=== PATIENT | male | born 2000 | race Hispanic/Latino ===

== ENCOUNTER 2021-08-19 07:18 | Emergency (ER) | payer BC ==
[~2021-08-19] VITALS: Ht 185.4 cm; Wt 77.0 kg
[~2021-08-19 07:18] MED LIST: ALLOPURINOL100 MG PO; ATENOLOL50 MG PO; LISINOPRIL20 MG PO; NIFEDIPINE60 MG PO; SPIRONOLACTONE50 MG PO; VITAMIN D22000 UNIT PO
[2021-08-19 09:45] VITALS: BP 176/110
== END 2021-08-19 09:52 | disposition home or self-care (01) | DRG 919 ==
LOC: ED 07:18
DX: K91.840 Postprocedural hemorrhage of a digestive system organ or structure following a digestive system procedure (principal); N18.6 End stage renal disease; I12.0 Hypertensive chronic kidney disease with stage 5 chronic kidney disease or end stage renal disease; Y83.6 Removal of other organ (partial) (total) as the cause of abnormal reaction of the patient, or of later complication, without mention of misadventure at the time of the procedure; Z99.2 Dependence on renal dialysis

== ENCOUNTER 2022-06-02 10:31 | Emergency (ER) | payer BC ==
[~2022-06-02] VITALS: Ht 185.4 cm; Wt 77.3 kg
[2022-06-02 10:58] VITALS: BP 182/113
[2022-06-02 11:00] VITALS: BP 183/119
[2022-06-02] MEDS ORDERED: RENAGEL 800MG800 MG PO (11:13)
[2022-06-02 11:15] VITALS: BP 177/115
[2022-06-02 11:19] LABS: HEMATOCRIT 27.9 % (39.0-50.0); HEMOGLOBIN 9.4 g/dl (14.0-18.0); IMMATURE GRANULOCYTES 0.5 % (0.0-5.0); MEAN CELL VOLUME 93.6 fL CALC (80.0-100.0); MEAN CORPUSCULAR HGB 31.5 pG CALC (26.0-32.0); MEAN CORPUSCULAR HGB CONC 33.7 g/dL CAL (32.0-36.0); NEUT# 3.65 thou/uL (1.82-7.42); RED BLOOD COUNT 2.98 mill/uL (4.70-6.10); RED CELL DISTRI WIDTH 11.8 % (11.5-15.5)
[2022-06-02 11:30] VITALS: BP 175/115
[2022-06-02 11:42] LABS: ALBUMIN 4.5 g/dL (3.2-5.0); BILIRUBIN, TOTAL 0.4 mg/dL (0.0-1.4); TOTAL PROTEIN 7.8 g/dL (6.3-8.2)
[2022-06-02 11:45] VITALS: BP 160/125
[2022-06-02 11:45] LABS: CREATININE 9.9 mg/dL (0.7-1.3)
[2022-06-02] MEDS ORDERED: ZOFRAN4 MG/TAB PO (12:56)
[2022-06-02] MEDS ORDERED: CIPROFLOXACN500 MG PO (12:56)
[2022-06-02] MEDS ORDERED: METRONIDAZOLE500 MG PO (12:56)
[2022-06-02 13:03] VITALS: BP 160/125
== END 2022-06-02 13:10 | disposition home or self-care (01) | DRG 391 ==
LOC: ED 10:31
PROVIDERS: Family Medicine
DX: K52.9 Noninfective gastroenteritis and colitis, unspecified (principal); N18.6 End stage renal disease; I12.0 Hypertensive chronic kidney disease with stage 5 chronic kidney disease or end stage renal disease; Z99.2 Dependence on renal dialysis

== ENCOUNTER 2022-07-21 07:56 | Emergency (ER) | payer BC ==
[~2022-07-21 07:56] MED LIST changes: +CIPROFLOXACN500 MG PO; +METRONIDAZOLE500 MG PO; +RENAGEL 800MG800 MG PO; +ZOFRAN4 MG/TAB PO
== END 2022-07-21 08:15 | disposition left against medical advice (07) | DRG 951 ==
LOC: ED 07:56 → LWOBS 08:14
DX: Z53.21 Procedure and treatment not carried out due to patient leaving prior to being seen by health care provider (principal)

== ENCOUNTER 2022-09-22 22:07 | Emergency (ER) | payer BC ==
[~2022-09-22] VITALS: Ht 185.4 cm; Wt 75.0 kg
[2022-09-22 22:22] VITALS: BP 150/100
[2022-09-22 22:30] VITALS: BP 141/93
[2022-09-22] MEDS ORDERED: ATENOLOL50 MG PO (22:59)
[2022-09-22 23:00] VITALS: BP 144/90
[2022-09-22] MEDS ORDERED: HYDRALAZINE50 MG PO (23:05)
[2022-09-22] MEDS ORDERED: TRAMADOL HCL50 MG PO (23:17)
[2022-09-22 23:22] VITALS: BP 144/90
== END 2022-09-22 23:29 | disposition home or self-care (01) | DRG 563 ==
LOC: ED 22:07
DX: S83.91XA Sprain of unspecified site of right knee, initial encounter (principal); X50.9XXA Other and unspecified overexertion or strenuous movements or postures, initial encounter

== ENCOUNTER 2022-10-27 19:17 | Emergency (ER) | payer BC ==
[~2022-10-27] VITALS: Ht 185.4 cm; Wt 77.0 kg
[2022-10-27] VITALS (7 sets, daily range): BP systolic 164–181; BP diastolic 115–121
[~2022-10-27 19:17] MED LIST changes: +HYDRALAZINE50 MG PO; +TRAMADOL HCL50 MG PO
[2022-10-27 20:51] LABS: BASO% 0.8 % (0-3); EOS% 6.7 % (0-8); HEMATOCRIT 29.3 % (39.0-50.0); IMMATURE GRANULOCYTES 0.2 % (0.0-5.0); LYMPH% 14.2 % (15-41); MEAN CELL VOLUME 93.9 fL CALC (80.0-100.0); MEAN CORPUSCULAR HGB 32.1 pG CALC (26.0-32.0); MEAN CORPUSCULAR HGB CONC 34.1 g/dL CAL (32.0-36.0); MONO% 8.6 % (2-13); NEUT# 4.45 thou/uL (1.82-7.42); NEUT% 69.5 % (42-76); RED BLOOD COUNT 3.12 mill/uL (4.70-6.10); RED CELL DISTRI WIDTH 11.9 % (11.5-15.5)
[2022-10-27 20:59] LABS: ALBUMIN 4.7 g/dL (3.2-5.0); BILIRUBIN, TOTAL 0.3 mg/dL (0.0-1.4); POTASSIUM 4.9 mmol/l (3.5-5.1); TOTAL PROTEIN 7.6 g/dL (6.3-8.2)
[2022-10-27 21:01] LABS: CREATININE 10.4 mg/dL (0.7-1.3)
[2022-10-27] MEDS ORDERED: TRAMADOL HCL50 MG PO (22:21)
[2022-10-27] MEDS ORDERED: DICYCLOMINE10 MG PO (22:21)
[2022-10-27] MEDS ORDERED: PREDNISONE50 MG PO (22:21)
== END 2022-10-27 22:35 | disposition home or self-care (01) | DRG 391 ==
LOC: ED 19:17
PROVIDERS: Family Medicine
DX: R10.11 Right upper quadrant pain (principal); N18.6 End stage renal disease; I12.0 Hypertensive chronic kidney disease with stage 5 chronic kidney disease or end stage renal disease; R10.12 Left upper quadrant pain